=== PATIENT | female | born 1950 | race Two or more races ===

== ENCOUNTER 2023-10-16 15:33 | Emergency (ER) | payer MEDICARE, MEDICAID ==
[~2023-10-16] VITALS: Ht 154.9 cm; Wt 65.9 kg
[2023-10-16 15:50] VITALS: BP 127/88; PULSE 80; RESP 16; O2SAT 97
[2023-10-16] MEDS ORDERED: HYDROcodone-ACET 5/325MG TAB PO ONE (17:00)
[2023-10-16] MEDS ORDERED: TRAM50TA2 PO (18:03)
== END 2023-10-16 17:50 | disposition home or self-care (01) ==
LOC: ER 15:33
DX: S76.011A Strain of muscle, fascia and tendon of right hip, initial encounter (principal); S83.91XA Sprain of unspecified site of right knee, initial encounter; G89.29 Other chronic pain; M54.9 Dorsalgia, unspecified; Z79.899 Other long term (current) drug therapy; W01.0XXA Fall on same level from slipping, tripping and stumbling without subsequent striking against object, initial encounter; Y93.89 Activity, other specified; Y92.89 Other specified places as the place of occurrence of the external cause; Y99.8 Other external cause status
CPT/HCPCS: 73502; 73562

== ENCOUNTER 2023-10-23 12:17 | Emergency (ER) | payer MEDICARE, MEDICAID ==
[~2023-10-23] VITALS: Ht 154.9 cm; Wt 61.6 kg
[~2023-10-23 12:17] MED LIST: TRAM50TA2 PO
[2023-10-23] MEDS ORDERED: CEPH500C PO (15:20)
[2023-10-23 15:23] VITALS: BP 144/93; PULSE 85; RESP 20; TEMP 98.6; O2SAT 99
== END 2023-10-23 15:49 | disposition home or self-care (01) ==
LOC: ER 12:17
DX: S00.83XA Contusion of other part of head, initial encounter (principal); S83.91XD Sprain of unspecified site of right knee, subsequent encounter; Z79.899 Other long term (current) drug therapy; W18.39XA Other fall on same level, initial encounter; Y93.89 Activity, other specified; Y92.89 Other specified places as the place of occurrence of the external cause; Y99.8 Other external cause status
CPT/HCPCS: 70450